=== PATIENT | male | born 1930 | race African-American/Black ===

== ENCOUNTER 2019-11-24 12:18 | Emergency (ER) | payer MEDICARE, OTHER ==
[~2019-11-24] VITALS: Ht 175.3 cm; Wt 78.9 kg
[2019-11-24] MEDS ORDERED: cloNIDine HCL 0.1 MG TAB ONE (12:38)
[2019-11-24] MEDS ORDERED: cloNIDine HCL 0.1 MG TAB PO ONE (12:45)
[2019-11-24 13:49] LABS: Basophils # (auto) 0 uL; Basophils % (auto) 1.2 % (0.0-2.0); Eosinophils # (auto) 0.5 uL; Eosinophils % (auto) 12.8 % (0.0-7.0); Hematocrit 38.1 % (41.0-53.0); Hemoglobin 12.7 g/dL (13.5-17.5); Lymphocytes # (auto) 1.2 uL; Lymphocytes % (auto) 30.5 % (10.0-50.0); Mean Corpuscular Hgb Conc. 33.5 g/dL (32.0-36.0); Mean Corpuscular Volume 89.7 fL (80.0-100.0); Monocytes # (auto) 0.5 uL; Monocytes % (auto) 13.5 % (0.0-12.0); Neutrophils # (auto) 1.6 uL; Nucleated Red Blood Cells % 0.1 %; Platelet Count (auto) 213 10^3/uL (140-450); Red Blood Cells 4.24 10^6/uL (4.5-5.90); Red Cell Distribution Width 14.7 % (11.8-14.3); White Blood Cell 3.9 10^3/uL (4.4-10.8)
[2019-11-24 14:04] LABS: Albumin 3.3 g/dL (3.4-5.0); Anion Gap 9 (5-15); Blood Urea Nitrogen 30 mg/dL (7-18); Calcium 8.4 mg/dL (8.5-10.1); Carbon Dioxide 22 mmol/L (21-32); Chloride 110 mmol/L (98-107); Glucose 109 mg/dL (74-106); Potassium 4.2 mmol/L (3.5-5.1); Sodium 141 mmol/L (136-145)
[2019-11-24 14:11] LABS: Alanine Aminotransferase 11 U/L (16-61); Alkaline Phosphatase 88 U/L (45-117); Aspartate Aminotransferase 12 U/L (15-37); BUN/Creatinine Ratio 8.6; Bilirubin, Total 0.5 mg/dL (0.2-1.0); GFR African American 21 mL/min; GFR Non-African American 18 mL/min; Total Protein 7.6 g/dL (6.4-8.2)
[2019-11-24] MEDS ORDERED: amLODIPine BESYLATE 5 MG TAB PO ONE (18:00)
[2019-11-24] MEDS ORDERED: NIFEdipine 10 MG CAP PO ONE (20:15)
[2019-11-24 21:00] VITALS: BP 201/89
== END 2019-11-24 21:45 | disposition home or self-care (01) ==
LOC: ER 12:27 → EDBD 12:27 → ER 21:45
DX: I11.0 Hypertensive heart disease with heart failure (principal); I50.9 Heart failure, unspecified; R51 Headache; E11.9 Type 2 diabetes mellitus without complications; F17.210 Nicotine dependence, cigarettes, uncomplicated
CPT/HCPCS: 36415; 70450; 71045; 80053; 83880; 84484; 85025; 93005